=== PATIENT | male | born 1930 | race Caucasian/White ===

== ENCOUNTER 2016-12-28 13:51 | Emergency (ER) | payer MEDICARE, OTHER ==
[2016-12-28 14:15] LABS: Urine Bilirubin Negative (Negative); Urine Glucose Negative (Negative); Urine Nitrite Negative (Negative)
[2016-12-28] MEDS ORDERED: NS 0.9% 1000 ML* 1,000 ML IV ONE (14:24)
[2016-12-28 15:07] LABS: Hematocrit 44 % (42-52); Hemoglobin 14.9 g/dl (14.0-18.0); Mean Corpuscular HGB Conc 34 g/dl (31-36); Mean Corpuscular Hemoglobin 30 pg (27-31); Mean Corpuscular Volume 88 fL (80-94); Mean Platelet Volume 7 um3 (7.4-10.4); Red Blood Count 5.03 10^6/ul (4.0-5.4); Red Cell Distribution Width 14 % (10.5-15); White Blood Count 5.6 10^3/ul (3.5-10.8)
[2016-12-28 15:18] LABS: Albumin 4.3 g/dL (3.2-5.2); BUN/Creatinine Ratio 20.2 (8-20); C Reactive Protein 2.47 mg/L (< 5.00); Calcium 9.7 mg/dL (8.6-10.3); EGFR African American 104.5 (>60); EGFR Non-African American 81.2 (>60); Globulin 3.2 g/dL (2-4); Potassium 4.2 mmol/L (3.5-5.0); Total Bilirubin 0.6 mg/dL (0.2-1.0); Total Protein 7.5 g/dL (6.4-8.9)
--- NOTE | 2016-12-28 15:39 | RAD ---
INDICATION: Left lower quadrant pain COMPARISON: None TECHNIQUE: Noncontrast axial source images were acquired from the level hemidiaphragms to the symphysis pubis. Lung bases: The lung bases are clear. The heart is mildly enlarged. Liver: The liver is normal in size. Noncontrast imaging shows no evidence of a hepatic mass or ductal dilatation. Gallbladder: Cholecystectomy. Spleen: The spleen is normal in size. The noncontrast CT appearance is normal. Pancreas: Noncontrast imaging shows no pancreatic mass or ductal dilitation. Adrenal glands: No masses are identified. Kidneys/Bladder: There is no evidence of urolithiasis. There is a peripherally calcified cyst in the right kidney measuring 13.4 cm in maximum transverse dimension. There is a 3 cm left renal cyst. There are no other renal masses. There is mild bilateral perinephric stranding and there is also stranding the region of the right renal pelvis. Suggest correlation with urinalysis in the event that this is related to a pyelonephritis. Urine cytology may also be indicated to exclude a transitional cell carcinoma. Adenopathy: There is a mass in the lower central pelvis to the right of midline measuring 3.2 x 2.3 cm and there are 2 additional smaller masses each measuring close to 2 cm which are slightly caudal in location just cephalad to the bladder. There is a small amount of scirrhous reactive change. Fluid collections: Trace fluid in the paracolic gutters and mild mesenteric stranding. Vessels: There are atherosclerotic changes of the aorta and iliac vessels. There is no focal aneurysm. The IVC appears normal Pelvic organs: The prostate is markedly enlarged measuring 7.6 x 6.0 cm in transverse dimensions GI tract: There are colonic diverticula most numerous in the sigmoid and descending colon with minor bowel wall thickening near the descending colon/sigmoid colon junction. This may reflect chronic change but mild diverticulitis is not excluded. Soft tissues: No soft tissue abnormalities of the extraperitoneal abdomen or pelvis are identified. Osseous structures: There are no acute osseous findings. IMPRESSION: 1. Abnormal right renal pelvis. Consider infection or transitional cell carcinoma. There are renal cysts with a large calcified right renal cyst 2. Mesenteric masses within the pelvis. One diagnostic consideration would include sarcomatous lesions. 3. Diverticula with findings of mild diverticulitis versus chronic change. 4. Marked prostatic enlargement. 5. Cholecystectomy 6. Mild cardiac enlargement.
[2016-12-28 17:14] VITALS: BP 155/89
--- NOTE | 2016-12-28 18:28 | ED ---
Annel Cunha Alok, scribed for Yogi Hathaway MD on 12/28/16 at 1426 . Abdominal Pain/Male - HPI Summary HPI Summary: 86 y/o male presents to the ED with sharp LLQ abd pain beginning this morning. Pt states that he felt fine this morning but since this morning has felt a constant pain in his LLQ, aggravated by palpation. Pt adds increase frequency for both BM and urination but in low quantities after the first BM. Pt denies any nausea and is allergic to IV dye. - History of Current Complaint Chief Complaint: EDAbdPain Stated Complaint: LOWER LT SIDE ABD PAIN Time Seen by Provider: 12/28/16 14:16 Hx Obtained From: Patient Onset/Duration: Gradual Onset, Lasting Hours, Still Present Timing: Constant Severity Initially: Moderate Severity Currently: Moderate Pain Intensity: 9 Pain Scale Used: 0-10 Numeric Location: Discrete At: LLQ Radiates: No Character: Sharp Aggravating Factor(s): Other: - Palpation Alleviating Factor(s): Nothing Associated Signs And Symptoms: Positive: Urinary Symptoms - increased frequency , Other - increased BM frequency (low amount). Negative: Fever, Nausea - Allergies/Home Medications Allergies/Adverse Reactions: Allergies Allergy/AdvReac Type Severity Reaction Status Date / Time IV DYE Allergy Intermediate HOT FLASH, Uncoded 08/25/14 11:41 NECK/FACE REDNESS PMH/Surg Hx/FS Hx/Imm Hx Endocrine/Hematology History: Denies: Hx Diabetes Cardiovascular History: Reports: Hx Hypertension - ON MEDICATION FOR Denies: Hx Pacemaker/ICD Respiratory History: Denies: Hx Asthma History: Reports: Other Problems/Disorders - CYST ON KIDNEY'S Musculoskeletal History: Denies: Hx Rheumatoid Arthritis, Hx Osteoporosis Sensory History: Reports: Hx Cataracts - RIGHT EYE, Hx Contacts or Glasses - GLASSES Denies: Hx Hearing Aid Opthamlomology History: Reports: Hx Cataracts - RIGHT EYE, Hx Contacts or Glasses - GLASSES Psychiatric History: Denies: Hx Panic Disorder - Surgical History Surgery Procedure, Year, and Place: CHOLECYSTECTOMY,CATARACT REPAIR Hx Anesthesia Reactions: No Infectious Disease History: No Infectious Disease History: Denies: Traveled Outside the [place] in Last 30 Days - Family History Known Family History: Positive: Other - No - Hx malignant hyperthermia. No - Hx anesthsoa reaction - Social History Occupation: Retired Lives: With Family - Alcohol Use: None Substance Use Type: Reports: None Smoking Status (MU): Former Smoker Amount Used/How Often: 1 PPD X 15 YEARS Review of Systems Negative: Fever Positive: Abdominal Pain - LLQ. Negative: Nausea Positive: frequency - BM and Urine All Other Systems Reviewed And Are Negative: Yes Physical Exam Triage Information Reviewed: Yes Vital Signs On Initial Exam: Initial Vitals Temp Pulse Resp BP Pulse Ox 98.1 F 75 16 183/91 100 12/28/16 13:53 12/28/16 13:53 12/28/16 13:53 12/28/16 13:53 12/28/16 13:53 Vital Signs Reviewed: Yes Appearance: Positive: Well-Appearing, No Pain Distress Skin: Positive: Warm, Skin Color Reflects Adequate Perfusion, Dry Head/Face: Positive: Normal Head/Face Inspection Eyes: Positive: Normal ENT: Positive: Normal ENT inspection Neck: Positive: Supple, Nontender Respiratory/Lung Sounds: Positive: Clear to Auscultation, Breath Sounds Present Cardiovascular: Positive: RRR Abdomen Description: Positive: Soft, Other: - LLQ tenderness Bowel Sounds: Positive: Present Musculoskeletal: Positive: Normal Neurological: Positive: Normal Psychiatric: Positive: Normal, Affect/Mood Appropriate Diagnostics - Vital Signs Vital Signs Temp Pulse Resp BP Pulse Ox 12/28/16 13:53 98.1 F 75 16 183/91 100 - Laboratory Lab Results: Lab Results 12/28/16 Range/Units 14:04 Urine Color Straw Urine Appearance Clear Urine pH 6.0 (5-9) Ur Specific [place] 1.006 L (1.010-1.030) Urine Protein Negative (Negative) Urine Ketones Negative (Negative) Urine Blood Negative (Negative) Urine Nitrate Negative (Negative) Urine Bilirubin Negative (Negative) Urine Urobilinogen Negative (Negative) Ur Leukocyte Esterase Negative (Negative) Urine Glucose Negative (Negative) Result Diagrams: 12/28/16 14:53 12/28/16 14:53 Lab Statement: Any lab studies that have been ordered have been reviewed, and results considered in the medical decision making process. - CT Abd/Pel CT CT Interpretation: Positive (See Comments) - IMPRESSION: 1. Abnormal right renal pelvis. Consider infection or transitional cell carcinoma. There are renal cysts with a large calcified right renal cyst 2. Mesenteric masses within the pelvis. One diagnostic consideration would include sarcomatous lesions. 3. Diverticula with findings of mild diverticulitis versus chronic change. 4. Marked prostatic enlargement. 5. Cholecystectomy 6. Mild cardiac enlargement. CT Interpretation Completed By: Radiologist Re-Evaluation - Re-Evaluation First Eval Re-Evaluation Time: 17:13 Abdominal Pain Fem Course/Dx - Course Course Of Treatment: Mr. Newsome presented with LLQ pain without nausea and was found to have mild diverticulitis on noncontrasted CT (he reported a contrast allergy). Incidenta note was made of renal and pelvis pathology that needs to be followed and W/U'd. I let him and his and son know about that and D/C' d him for outpatient treatment and F/U. - Diagnoses Provider Diagnoses: Diverticulitis Discharge - Discharge Plan Condition: Stable Disposition: HOME Prescriptions: Ciprofloxacin TAB* [Cipro Tab*] 500 mg PO BID #20 tab Metronidazole [Flagyl 500 MG TAB] 500 mg PO TID #30 tab Patient Education Materials: Diverticulitis (ED) Referrals: Rinku Prasad MD [Primary Care Provider] - The documentation as recorded by the Annel horan Alok accurately reflects the service I personally performed and the decisions made by me, Yogi Hathaway MD.
== END 2016-12-28 17:29 | disposition home or self-care (01) ==
LOC: ED 13:51
DX: K57.92 Diverticulitis of intestine, part unspecified, without perforation or abscess without bleeding (principal); R10.32 Left lower quadrant pain; Z87.891 Personal history of nicotine dependence; Z90.49 Acquired absence of other specified parts of digestive tract
CPT/HCPCS: 36415; 74176; 80053; 81003; 83605; 83690; 85025; 86140; 96360; 99282

== ENCOUNTER 2017-11-22 10:54 | Emergency (ER) | payer MEDICARE, OTHER ==
[2017-11-22 12:06] VITALS: BP 147/77
[2017-11-22] MEDS ORDERED: Aspirin Low Dose CHEW TAB* 81 MG PO ONE (12:40)
--- NOTE | 2017-11-22 12:41 | UC ---
Respiratory Complaint HPI - HPI Summary HPI Summary: Pleasant 87 yo gentleman c/o progressive cough, fatigue since Sep 2017. Completed a 10 day course of amoxicillin (approx 11/07/17), but sx did not improve. No rash. Denies chest pain perse. No GI issues. No recent fever. Cough minimally productive. Able to lie down, but does cough. Presents to [facility] today accompanied by his . - History of Current Complaint Chief Complaint: UCGeneralIllness Stated Complaint: COUGH Time Seen by Provider: 11/22/17 12:12 Hx Obtained From: Patient, Family/Application Programmer Analyst Pain Intensity: 0 - Allergies/Home Medications Allergies/Adverse Reactions: Allergies Allergy/AdvReac Type Severity Reaction Status Date / Time Iodinated Contrast- Oral and Allergy Hot Flash, Verified 11/22/17 12:07 IV Dye Neck/Face IV DYE Allergy Intermediate HOT FLASH, Uncoded 08/25/14 11:41 NECK/FACE REDNESS PMH/Surg Hx/FS Hx/Imm Hx Previously Healthy: Yes - Denies sign pmh. Took 81mg po asa this am - Surgical History Surgical History: Yes Surgery Procedure, Year, and Place: CHOLECYSTECTOMY,CATARACT REPAIR - Family History Known Family History: Positive: Other - No - Hx malignant hyperthermia. No - Hx anesthsoa reaction - Social History Alcohol Use: None Substance Use Type: None Smoking Status (MU): Former Smoker Amount Used/How Often: 1 PPD X 15 YEARS When Did the Patient Quit Smoking/Using Tobacco: 30 YEARS AGO Review of Systems Constitutional: Fatigue Skin: Negative Eyes: Negative ENT: Sinus Congestion Respiratory: Cough Cardiovascular: Palpitations Gastrointestinal: Negative Genitourinary: Negative Motor: Negative Neurovascular: Negative Musculoskeletal: Negative Neurological: Negative Psychological: Negative Is Patient Immunocompromised?: No All Other Systems Reviewed And Are Negative: Yes Physical Exam Triage Information Reviewed: Yes Appearance: Well-Nourished - able to sit and stand, exam in reclined position. Nondiaphoretic. Conversing in full sentences. Vital Signs: Initial Vital Signs Temp 97.5 F 11/22/17 11:56 Pulse 132 11/22/17 11:56 Resp 20 11/22/17 11:56 BP 147/77 11/22/17 11:56 Pulse Ox 98 11/22/17 11:56 Vital Signs Reviewed: Yes Eye Exam: Normal - grossly nad. perrla eomi. ENT: Positive: Pharyngeal erythema - mild post redness, no sores appreciated, TM dull Neck exam: Normal Neck: Positive: Supple, Nontender, Other: - jvd not appreciated Respiratory: Positive: Lungs clear - poor full inspiration, but bs as auscultated are clear, Normal breath sounds, No respiratory distress Cardiovascular Exam: Other - HR 130's at initial examination. 120's at my examination. EKG noted. HR correlates with L radial pulse Abdomen Description: Positive: Nontender, No Organomegaly, Soft Musculoskeletal Exam: Normal - moves all 4 ext's BLE venous insuff changes, paucity of hair growth, minimal edema Neurological Exam: Normal - grossly nonfocal Psychological Exam: Normal - conversing easily and appropriately Skin Exam: Normal - nondiaphoretic. No visible or reported rash. UC Diagnostic Evaluation - Laboratory O2 Sat by Pulse Oximetry: 98 Respiratory Course/Dx - Course Course Of Treatment: EKG SR 124bpm + RBBB, c/w EKG 2008 SR 72bpm with incomplete RBBB. D/w pt and the importance of evaluation in ED. Encouraged EMS, but he and his politely but firmly decline. Ms. Newsome will drive. ASA 81mg po x 3 here prior to leaving [facility]. I spoke with RODOLFO Zaragoza prior to pt's departure. Diff dx includes cardiopulmonary, cardiac, electrolyte imbalance, influenza, other. Questions as posed answered to the best of my ability. - Differential Dx/Diagnosis Provider Diagnoses: Cough. Tachycardia. Abnormal EKG Discharge - Discharge Plan Condition: Guarded Disposition: TRANS HIGHER LVL OF CARE FAC Referrals: German Lindsey MD [Primary Care Provider] - Additional Instructions: Go directly to the Emergency Department. Call 911 for problems en route.
== END 2017-11-22 12:50 | disposition short-term general hospital (02) ==
LOC: UCEAST 10:54
DX: R05 Cough (principal); R00.0 Tachycardia, unspecified; R94.31 Abnormal electrocardiogram [ECG] [EKG]
CPT/HCPCS: 93005; 99212; A9270-GY; G0463

== ENCOUNTER 2017-11-22 13:21 | Emergency (ER) | payer MEDICARE, OTHER ==
[2017-11-22 15:14] LABS: ABS Basophils 0.1 10^3/ul (0-0.2); ABS Eosinophils 0 10^3/ul (0-0.6); ABS Lymphocytes 1.2 10^3/ul (1.0-4.8); ABS Monocytes 0.7 10^3/ul (0-0.8); ABS Neutrophils 4.6 10^3/ul (1.5-7.7); ABS Nucleated RBC 0 10^3/ul; Eosinophil % 0.7 % (0-6); Hematocrit 48 % (42-52); Lymphocyte % 18.2 % (25-47); Mean Corpuscular HGB Conc 34 g/dl (31-36); Mean Corpuscular Hemoglobin 30 pg (27-31); Mean Corpuscular Volume 90 fL (80-94); Mean Platelet Volume 7 um3 (7.4-10.4); Nucleated Red Blood Cells % 0.1; Platelet Count 250 10^3/ul (150-450); Red Blood Count 5.29 10^6/ul (4.0-5.4); Red Cell Distribution Width 14 % (10.5-15); White Blood Count 6.6 10^3/ul (3.5-10.8)
--- NOTE | 2017-11-22 15:17 | RAD ---
INDICATION: Cough COMPARISON: February 02, 2008 TECHNIQUE: An AP portable view obtained at 1503 hours is submitted. FINDINGS: Bones/Soft Tissues: There are no acute bony findings. Cardiomediastinal: The cardiomediastinal silhouette is normal. Lungs: There are no infiltrates. Pleura: There are no pleural effusions. Other: None IMPRESSION: NO ACTIVE DISEASE.
[2017-11-22 15:28] LABS: EGFR Non-African American 61.5 (>60)
[2017-11-22] MEDS ORDERED: Nitroglycerin TAB 0.4 MG* 0.4 MG TAB SL ONE (15:50)
[2017-11-22 16:43] VITALS: BP 122/74
--- NOTE | 2017-11-24 12:33 | ED ---
Gerard Cunha Julia, scribed for Luis Betts MD on 11/22/17 at 1601 . Palpitations / Dysrhythmia - HPI Summary HPI Summary: This patient is a 87 year old M [facility] by with a chief complaint of elevated HR since this morning.Patient reports chest pressure right below xiphoid process. Patient denies: n/v/d fever chills sweats , dizziness, and lightheadedness. The patient rates the pain 2/10 in severity. reports recent illness. Patient shoveled driveway this morning and had 2 cups of coffe, which is normal for him. Pt was referred from [facility]. Pt takes Enalapril for HTN and a baby ASA every day. - History of Current Complaint Chief Complaint: EDGeneral Time Seen by Provider: 11/22/17 15:49 Hx Obtained From: Patient, Family/Third Shift Lieutenant Onset/Duration: Lasting Days Severity Currently: Mild - 2/10 Character: Fast Associated Signs & Symptoms: Chest Pain - Allergy/Home Medications Allergies/Adverse Reactions: Allergies Allergy/AdvReac Type Severity Reaction Status Date / Time Iodinated Contrast- Oral and Allergy Hot Flash, Verified 11/22/17 15:22 IV Dye Neck/Face IV DYE Allergy Intermediate HOT FLASH, Uncoded 11/22/17 15:22 NECK/FACE REDNESS PMH/Surg Hx/FS Hx/Imm Hx Endocrine/Hematology History: Denies: Hx Diabetes Cardiovascular History: Reports: Hx Hypertension - ON MEDICATION FOR Denies: Hx Pacemaker/ICD Respiratory History: Denies: Hx Asthma History: Reports: Other Problems/Disorders - CYST ON KIDNEY'S Denies: Hx Renal Disease Musculoskeletal History: Denies: Hx Rheumatoid Arthritis, Hx Osteoporosis Sensory History: Reports: Hx Cataracts - RIGHT EYE, Hx Contacts or Glasses - GLASSES Denies: Hx Hearing Aid Opthamlomology History: Reports: Hx Cataracts - RIGHT EYE, Hx Contacts or Glasses - GLASSES Psychiatric History: Denies: Hx Panic Disorder - Surgical History Surgery Procedure, Year, and Place: CHOLECYSTECTOMY,CATARACT REPAIR Hx Anesthesia Reactions: No Infectious Disease History: Yes Infectious Disease History: Reports: Hx Shingles Denies: Traveled Outside the [place] in Last 30 Days - Family History Known Family History: Positive: Other - No - Hx malignant hyperthermia. No - Hx anesthsoa reaction - Social History Alcohol Use: None Substance Use Type: Reports: None Smoking Status (MU): Former Smoker Amount Used/How Often: 1 PPD X 15 YEARS Review of Systems Negative: Fever, Chills Negative: Erythema Negative: Sore Throat Positive: Palpitations - tachy, Chest Pain Negative: Shortness Of Breath, Cough Negative: Abdominal Pain, Vomiting, Nausea Negative: dysuria, hematuria Negative: Edema Negative: Rash Neurological: Negative - dizziness/lightheaded All Other Systems Reviewed And Are Negative: Yes Physical Exam - Summary Physical Exam Summary: Constitutional: Well-developed, Well-nourished, Alert. (-) Distressed Skin: Warm, Dry HENT: Normocephalic; Atraumatic Eyes: Conjunctiva normal Neck: Musculoskeletal ROM normal neck. (-) JVD, (-) Stridor, (-) Tracheal deviation Cardio: Rhythm regular, rate normal, Heart sounds normal; Intact distal pulses; The pedal pulses are 2+ and symmetric. Radial pulses are 2+ and symmetric. (-) Murmur Pulmonary/Chest wall: Effort normal. (-) Respiratory distress, (-) Wheezes, (-) Rales, (+) Tenderness below xiphoid Abd: Soft, (-) Tenderness, (-) Distension, (-) Guarding, (-) Rebound Musculoskeletal: (-) Edema Lymph: (-) Cervical adenopathy Neuro: Alert, Oriented x3 Psych: Mood and affect Normal Triage Information Reviewed: Yes Vital Signs On Initial Exam: Initial Vitals Temp Pulse Resp BP Pulse Ox 97.6 F 138 20 119/87 96 11/22/17 13:27 11/22/17 13:27 11/22/17 13:27 11/22/17 13:27 11/22/17 13:27 Vital Signs Reviewed: Yes Diagnostics - Vital Signs Vital Signs Temp Pulse Resp BP Pulse Ox 11/22/17 15:30 116 24 105/81 97 11/22/17 15:00 123 23 149/99 92 11/22/17 14:56 96 11/22/17 14:31 125 21 106/82 94 11/22/17 14:17 128 95 11/22/17 14:15 135/97 11/22/17 13:27 97.6 F 138 20 119/87 96 - Laboratory Lab Results: Lab Results 11/22/17 11/22/17 11/22/17 Range/Units 15:02 15:02 15:02 WBC 6.6 (3.5-10.8) 10^3/ul RBC 5.29 (4.0-5.4) 10^6/ul Hgb 16.0 (14.0-18.0) g/dl Hct 48 (42-52) % MCV 90 (80-94) fL MCH 30 (27-31) pg MCHC 34 (31-36) g/dl RDW 14 (10.5-15) % Plt Count 250 (150-450) 10^3/ul MPV 7 L (7.4-10.4) um3 Neut % (Auto) 69.5 (38-83) % Lymph % (Auto) 18.2 L (25-47) % [place] % (Auto) 10.4 H (1-9) % Eos % (Auto) 0.7 (0-6) % Baso % (Auto) 1.2 (0-2) % Absolute Neuts (auto) 4.6 (1.5-7.7) 10^3/ul Absolute Lymphs (auto) 1.2 (1.0-4.8) 10^3/ul Absolute Monos (auto) 0.7 (0-0.8) 10^3/ul Absolute Eos (auto) 0 (0-0.6) 10^3/ul Absolute Basos (auto) 0.1 (0-0.2) 10^3/ul Absolute Nucleated RBC 0 10^3/ul Nucleated RBC % 0.1 Sodium 140 (133-145) mmol/L Potassium 5.0 (3.5-5.0) mmol/L Chloride 104 (101-111) mmol/L Carbon Dioxide 30 (22-32) mmol/L Anion Gap 6 (2-11) mmol/L BUN 22 (6-24) mg/dL Creatinine 1.13 (0.67-1.17) mg/dL Est GFR ( Amer) 79.1 (>60) Est GFR (Non-Af Amer) 61.5 (>60) BUN/Creatinine Ratio 19.5 (8-20) Glucose 127 H (70-100) mg/dL Lactic Acid 1.6 (0.5-2.0) mmol/L Calcium 9.7 (8.6-10.3) mg/dL Total Bilirubin 0.60 (0.2-1.0) mg/dL AST 15 (13-39) U/L ALT 15 (7-52) U/L Alkaline Phosphatase 59 (34-104) U/L Troponin I 0.01 (<0.04) ng/mL Total Protein 7.6 (6.4-8.9) g/dL Albumin 4.1 (3.2-5.2) g/dL Globulin 3.5 (2-4) g/dL Albumin/Globulin Ratio 1.2 (1-3) TSH Pending Thyroxine (T4) Pending Result Diagrams: 11/22/17 15:02 11/22/17 15:02 Lab Statement: Any lab studies that have been ordered have been reviewed, and results considered in the medical decision making process. - Radiology CXR Radiology Interpretation Completed By: Radiologist - NO ACTIVE DISEASE. ED Physician has reviewed this report. - EKG 1601 Cardiac Rate: Tachycardia - at 104 BPM EKG Rhythm: Sinus Tachycardia - junctional tachycardia EKG Interpretation: no STEMI 1448 Cardiac Rate: Tachycardia - at 118 EKG Rhythm: Sinus Tachycardia EKG Interpretation: RBBB, no STEMI Course/Dx - Course Course Of Treatment: Pt presents with elevated HR since this morning.Patient reports chest pressure right below xiphoid process. Pt was given Nitro. CXR reveals no acute disease. First and second EKG reveals sinus tachycardia, with no STEMI Pt left AMA and is encouraged to return due to concern for AR. Pt is aware of potential AR. He is instructed to follow up with his PCP as soon as possible. - Diagnoses Provider Diagnoses: Exertional chest pain, Tachycardia Discharge - Discharge Plan Condition: Fair Disposition: AGAINST MEDICAL ADVICE Referrals: German Lindsey MD [Primary Care Provider] - As Soon As Possible The documentation as recorded by the Gerard horan Julia accurately reflects the service I personally performed and the decisions made by , Luis Betts MD.
== END 2017-11-22 16:57 | disposition left against medical advice (07) ==
LOC: ED 13:21
DX: R00.0 Tachycardia, unspecified (principal); R07.89 Other chest pain; I45.10 Unspecified right bundle-branch block; Z53.21 Procedure and treatment not carried out due to patient leaving prior to being seen by health care provider; Z87.891 Personal history of nicotine dependence; Z91.041 Radiographic dye allergy status
CPT/HCPCS: 36415; 71045; 80053; 83605; 84436; 84443; 84484; 85025; 93005; 99283; A9270-GY